=== PATIENT | female | born 1995 | race Caucasian/White ===

== ENCOUNTER → 2018-01-11 11:09 | Outpatient (REF) | payer BC, SELFPAY ==
[2018-01-15 11:21] LABS: Campylobacter PCR SEE COMMENTS; Salmonella PCR SEE COMMENTS; Shiga Toxin PCR SEE COMMENTS; Shigella/Enteroinvasive Ecoli SEE COMMENTS
== END ==
LOC: NCHCN 11:09
PROVIDERS: PCP Specialist/Technologist Athletic Trainer; Visit Provider Physician Assistant Medical
DX: R19.7 Diarrhea, unspecified (principal)
CPT/HCPCS: 87329; 87505

== ENCOUNTER → 2018-01-12 11:09 | Outpatient (REF) | payer BC, SELFPAY | LOC: NCHCN 11:09 | PROVIDERS: PCP Specialist/Technologist Athletic Trainer; Visit Provider Physician Assistant Medical | DX: R19.7 Diarrhea, unspecified (principal) | CPT/HCPCS: 83630; 87324 ==

== ENCOUNTER → 2018-02-04 16:41 | Outpatient (REF) | payer BC, SELFPAY ==
[2018-02-04 22:00] LABS: Bacteria Moderate HPF (Negative); Crystals Negative HPF (Negative); Epithelial Cells Moderate HPF (Negative); RBC 0-2 (0-2); WBC 0-2 HPF (0-5)
[2018-02-04 22:01] LABS: C & S Indicated? No/Sq. Contamination; Casts Negative LPF (Negative); Mucus Moderate (Negative)
[2018-02-06 14:27] LABS: Chlamydia Result Negative; GC Result Negative; Specimen Description VAGINAL
== END ==
LOC: NCHCN 16:41
PROVIDERS: PCP Specialist/Technologist Athletic Trainer; Visit Provider Specialist/Technologist Athletic Trainer
DX: N89.8 Other specified noninflammatory disorders of vagina (principal); R51 Headache; Z11.3 Encounter for screening for infections with a predominantly sexual mode of transmission
CPT/HCPCS: 87491; 87591; 81015; 87480; 87510; 87660

== ENCOUNTER 2018-04-01 00:25 | Outpatient (CLI) | payer BC, SELFPAY ==
--- NOTE | 2018-04-01 06:51 | DI.US_ITS ---
SYMPTOM/DIAGNOSIS: SPLENOMEGALY,R16.1 ABDOMEN ULTRASOUND: Comparison is made with 08/27/17. The spleen is now normal in size, measuring 10.6 by 10.2 by 8.7 cm. There is a question of mild heterogeneity. The liver is normal in size and echogenicity. The gallbladder is unremarkable, without evidence of stones or wall thickening. The tail of the pancreas was not visualized. The aorta and kidneys are unremarkable. IMPRESSION: The spleen is now normal in size. No new abnormalities are seen.
== END 2018-04-01 00:45 ==
PROVIDERS: PCP Specialist/Technologist Athletic Trainer; Visit Provider Physician Assistant Medical
DX: R16.1 Splenomegaly, not elsewhere classified (principal)
CPT/HCPCS: 76700

== ENCOUNTER 2018-04-29 16:15 | Outpatient (REF) | payer BC, SELFPAY ==
[2018-05-01 14:57] LABS: Chlamydia Result Negative; GC Result Negative; Specimen Description CERVIX
== END 2018-04-29 16:35 ==
LOC: LBN 16:15
PROVIDERS: PCP Specialist/Technologist Athletic Trainer; Visit Provider Obstetrics & Gynecology Gynecology
DX: Z11.3 Encounter for screening for infections with a predominantly sexual mode of transmission (principal)
CPT/HCPCS: 87491; 87591

== ENCOUNTER 2018-05-06 08:14 | Outpatient (CLI) | payer BC, SELFPAY ==
--- NOTE | 2018-05-06 15:09 | DI.US_ITS ---
SYMPTOM/DIAGNOSIS: RT SIDED PELVIC PAIN R10.2 PELVIC ULTRASOUND Comparison is made with 17 Apr 2016. Transabdominal and transvaginal exams were performed. The uterus measures 7.2 x 2.6 x 4.2 cm. An IUD is seen positioned within the endometrium. A 1.8 cm follicle is seen on the left ovary. The right ovary shows small follicles. There is no free fluid or hydronephrosis. IMPRESSION: Pelvic ultrasound is within normal limits. The IUD appears appropriately positioned.
== END 2018-05-06 08:34 ==
PROVIDERS: PCP Physician Assistant Medical; Visit Provider Obstetrics & Gynecology Gynecology
DX: R10.2 Pelvic and perineal pain (principal); Z30.431 Encounter for routine checking of intrauterine contraceptive device
CPT/HCPCS: 76830; 76856

== ENCOUNTER 2018-07-11 13:30 | Outpatient (REF) | payer BC, SELFPAY ==
--- NOTE | 2018-07-11 13:00 | PAPFT_PTH ---
PATIENT: Lee Colon LOC: [facility] U#:[id number] AGE/SX: 22/F ROOM: RE07/11/[address]: YANICK Ovalle : 1995 BED: DIS: 07/11/2018 SPEC #: [id number] RECD: 07/11/18 17:47 STATUS: NORMA RESha #: [id number] DARY: 07/11/18 13:[address]: Frances Coronado DEPT: [facility] Cytology RECD BY: Jessie Varela ENTERED: 07/11/18 17:47 SP TYPE: PAPFT SANTOS DR: Yimi Cannon Tissues: 1 - CX/ENDOCX FOR PAP SMEARS Procedures: PAP THIN PREP/[facility] Screening Comments: [id number]
[2018-07-12 14:59] LABS: Chlamydia Result Negative; GC Result Negative; Specimen Description CERVIX
== END 2018-07-11 13:50 ==
LOC: LBN 13:30
PROVIDERS: PCP Physician Assistant Medical; Visit Provider Nurse Practitioner Family
DX: Z11.3 Encounter for screening for infections with a predominantly sexual mode of transmission (principal); Z12.4 Encounter for screening for malignant neoplasm of cervix; Z11.51 Encounter for screening for human papillomavirus (HPV)
CPT/HCPCS: 87491; 87591; 88142

== ENCOUNTER 2018-09-05 15:00 | Outpatient (REF) | payer BC, SELFPAY ==
[2018-09-09 14:03] LABS: Chlamydia Result Negative; GC Result Negative; Specimen Description CERVIX
== END 2018-09-05 15:20 ==
LOC: LBN 15:00
PROVIDERS: PCP Physician Assistant Medical; Visit Provider Nurse Practitioner Family
DX: R35.0 Frequency of micturition (principal); Z11.3 Encounter for screening for infections with a predominantly sexual mode of transmission
CPT/HCPCS: 87491; 87591; 87086

== ENCOUNTER 2019-04-22 15:57 | Outpatient (REF) | payer BC, SELFPAY ==
[2019-04-24 14:15] LABS: Chlamydia Result Negative (Negative)
[2019-04-24 16:37] LABS: GC Result Negative (Negative)
== END 2019-04-22 16:17 ==
LOC: LBN 15:57
PROVIDERS: PCP Physician Assistant Medical; Visit Provider Nurse Practitioner Family
DX: Z11.3 Encounter for screening for infections with a predominantly sexual mode of transmission (principal)
CPT/HCPCS: 87491; 87591

== ENCOUNTER 2020-12-16 15:14 | Outpatient (CLI) | payer BC, SELFPAY ==
--- NOTE | 2020-12-16 12:45 | DI.RAD_ITS ---
Exam(s) XR FOOT RT COMPLETE EXAM: XR FOOT RT COMPLETE CLINICAL HISTORY: TOE PAIN RT M79.674. TECHNIQUE: 2D digital imaging was performed. COMPARISON: No exams were available for comparison FINDINGS: BONES: Nondisplaced fracture of the tuft of the distal phalanx of the 3rd toe. No additional fractur es.. No bony destructive lesion is seen. JOINTS: No dislocation present. SOFT TISSUE: Normal. IMPRESSION: Third toe tuft fracture. DATA REPOSITORY: RADIATION DOSE DELIVERED:
== END 2020-12-16 15:34 ==
PROVIDERS: PCP Physician Assistant Medical; Visit Provider Physician Assistant Medical
DX: S92.534A Nondisplaced fracture of distal phalanx of right lesser toe(s), initial encounter for closed fracture (principal); X58.XXXA Exposure to other specified factors, initial encounter
CPT/HCPCS: 73630

== ENCOUNTER 2021-03-21 01:43 | Outpatient (CLI) | payer BC, SELFPAY ==
[2021-03-21 07:30] LABS: Abs Immature Grans 0.01 10^3/uL (0.0-0.06); Absolute Basophil Count 0.02 10^3/uL (0.0-0.2); Absolute Eosinophil Count 0.05 10^3/uL (0.0-0.7); Absolute Lymphocyte Count 2.05 10^3/uL (1.2-3.4); Absolute Neutrophil Count 1.96 10^3/uL (1.2-6.7); Basophils % 0.4; Eosinophils % 1.1; HCT 41.6 % (36.0-46.0); HGB 13.3 g/dL (11.2-15.7); Immature Grans % 0.2; Lymphocytes % 45.7; MCH 28.6 pg (27.0-33.0); MCV 89.5 fL (80-95); MPV 10.1 fL (8.0-11.0); Monocytes % 8.9; Neutrophils % 43.7; Nucleated RBC 0 %; Platelet Count 191 10^3/uL (130-400); RBC 4.65 10^6/uL (3.93-5.22); RDW-SD 39.6 fL; WBC 4.49 10^3/uL (4.4-10.8)
[2021-03-21 10:52] LABS: ALT 24 U/L (14-59); AST 16 U/L (15-37); Albumin 4.5 g/dL (3.4-5.0); Alkaline Phosphatase 79 U/L (46-116); Anion Gap 8.7 mmol/L (3-11); BUN 24 mg/dL (7-18); Bilirubin, Total 0.4 mg/dL (0.2-1.0); CO2 29.3 mmol/L (21.0-32.0); CREATININE 0.9 mg/dL (0.55-1.02); Chloride 105 mmol/L (98-107); Ferritin 47 ng/mL (8-252); Folate 6.3 ng/mL (8.6-20.0); Glucose 89 mg/dL (74-106); Iron 55 ug/dL (50-170); Magnesium 1.9 mg/dL (1.8-2.4); Potassium 4.3 mmol/L (3.5-5.1); Sodium 143 mmol/L (136-145); TSH (W/Ref FT4) 1.95 uIU/mL (0.36-3.74); Total Iron Binding Capacity 315 ug/dL (250-450); Total Protein 7.5 g/dL (6.4-8.2); Transferrin Sat 17 % (15-50); Vitamin B12 665 pg/mL (193-986)
[2021-03-21 11:49] LABS: Calcium 9.1 mg/dL (8.5-10.1)
[2021-03-21 16:30] LABS: T3,Free 3.2 pg/mL (2.8-5.3)
[2021-03-21 17:02] LABS: Progesterone 0.5 ng/mL (See Table)
[2021-03-23 10:54] LABS: EBNA IgG Positive (Negative); EBV Interpretation (See Note); VCA IgG Positive (Negative); VCA IgM Positive (Negative)
[2021-03-24 13:02] LABS: Estradiol, Mass Spectrometry 42 pg/mL; Estrone 31 pg/mL
[2021-03-31 16:38] LABS: Testosterone, Free 0.65 ng/dL (0.06-1.08); Testosterone, Total 27 ng/dL (8-60)
== END 2021-03-21 01:44 | disposition home or self-care (01) ==
PROVIDERS: PCP Physician Assistant Medical; Visit Provider Naturopath
DX: N92.6 Irregular menstruation, unspecified (principal); R53.83 Other fatigue; G43.909 Migraine, unspecified, not intractable, without status migrainosus
CPT/HCPCS: 36415; 80053; 84402; 84403; 82607; 82670; 82679; 82728; 82746; 83540; 83550; 83735; 84144; 84443; 84481; 85025; 86664; 86665

== ENCOUNTER 2021-04-06 16:39 | Outpatient (REF) | payer BC, SELFPAY | END 2021-04-06 16:40 | disposition home or self-care (01) | LOC: LBN 16:39 | PROVIDERS: PCP Physician Assistant Medical; Visit Provider Obstetrics & Gynecology Gynecology | DX: N89.8 Other specified noninflammatory disorders of vagina (principal) | CPT/HCPCS: 87480; 87510; 87660 ==

== ENCOUNTER 2021-08-24 17:32 | Outpatient (REF) | payer BC, SELFPAY ==
[2021-08-25 13:46] LABS: Chlamydia Result Negative (Negative); GC Result Negative (Negative)
== END 2021-08-24 17:33 | disposition home or self-care (01) ==
LOC: LBN 17:32
PROVIDERS: PCP Physician Assistant Medical; Visit Provider Obstetrics & Gynecology Gynecology
DX: N89.8 Other specified noninflammatory disorders of vagina (principal); Z11.3 Encounter for screening for infections with a predominantly sexual mode of transmission
CPT/HCPCS: 87491; 87591

== ENCOUNTER 2021-11-01 18:42 | Outpatient (REF) | payer BC, SELFPAY ==
[2021-11-03 08:21] LABS: Chlamydia Result Negative (Negative); GC Result Negative (Negative)
== END 2021-11-01 18:43 | disposition home or self-care (01) ==
LOC: LBN 18:42
PROVIDERS: PCP Physician Assistant Medical; Visit Provider Obstetrics & Gynecology
DX: N76.0 Acute vaginitis (principal); B96.89 Other specified bacterial agents as the cause of diseases classified elsewhere
CPT/HCPCS: 87491; 87591; 87480; 87510; 87660

== ENCOUNTER 2021-11-24 17:21 | Outpatient (REF) | payer BC, SELFPAY | END 2021-11-24 17:22 | disposition home or self-care (01) | LOC: LBN 17:21 | PROVIDERS: PCP Physician Assistant Medical; Visit Provider Obstetrics & Gynecology Gynecology | DX: N76.0 Acute vaginitis (principal) | CPT/HCPCS: 87480; 87510; 87660 ==

== ENCOUNTER 2022-03-22 16:11 | Outpatient (REF) | payer BC, SELFPAY ==
[2022-03-22 14:48] LABS: Abs Immature Grans 0.01 10^3/uL (0.0-0.06); Absolute Basophil Count 0.01 10^3/uL (0.0-0.2); Absolute Eosinophil Count 0.03 10^3/uL (0.0-0.7); Absolute Monocyte Count 0.58 10^3/uL (0.1-0.8); Basophils % 0.1; Eosinophils % 0.4; HCT 38.4 % (36.0-46.0); HGB 12.5 g/dL (11.2-15.7); Immature Grans % 0.1; Lymphocytes % 22.1; MCH 27.9 pg (27.0-33.0); MCHC 32.6 % (32.0-36.0); MCV 86 fL (80-95); MPV 10.7 fL (8.0-11.0); Monocytes % 7.1; Neutrophils % 70.2; Platelet Count 195 10^3/uL (130-400); RBC 4.48 10^6/uL (3.93-5.22); RDW 12.1 % (11.7-14.6); RDW-SD 37.7 fL; WBC 8.13 10^3/uL (4.4-10.8)
[2022-03-22 15:09] LABS: ALT 22 U/L (14-59); AST 20 U/L (15-37); Albumin 4.6 g/dL (3.4-5.0); Alkaline Phosphatase 68 U/L (46-116); Anion Gap 6.2 mmol/L (3-11); BUN 17 mg/dL (7-18); Bilirubin, Total 0.3 mg/dL (0.2-1.0); CO2 28.8 mmol/L (21.0-32.0); CREATININE 0.9 mg/dL (0.55-1.02); Calcium 9.5 mg/dL (8.5-10.1); Chloride 103 mmol/L (98-107); Estimated GFR 90.98 (mL/min/1.73m2); Glucose 89 mg/dL (74-106); Potassium 4.1 mmol/L (3.5-5.1); Sodium 138 mmol/L (136-145); TSH (W/Ref FT4) 0.89 uIU/mL (0.36-3.74); Total Protein 8.3 g/dL (6.4-8.2)
== END 2022-03-22 16:12 | disposition home or self-care (01) ==
LOC: NCHCN 16:11
PROVIDERS: PCP Physician Assistant Medical; Visit Provider Physician Assistant Medical
DX: L65.9 Nonscarring hair loss, unspecified (principal)
CPT/HCPCS: 80053; 84443; 85025

== ENCOUNTER 2023-01-03 18:12 | Outpatient (CLI) | payer MEDICAID, SELFPAY ==
--- NOTE | 2023-01-03 16:23 | DI.RAD_ITS ---
Exam(s) XR SACROILIAC JOINTS EXAM: XR SACROILIAC JOINTS CLINICAL HISTORY: SACROCOCCYGEAL DISORDERS--M53.3. TECHNIQUE: 2D digital imaging was performed. COMPARISON: No exams were available for comparison FINDINGS: 3 views No evidence of sacroiliitis. No ankylosis of the SI joints. There is a sclerotic density in the left iliac bone measuring approximately 1.6 x 1.2 cm. This is pr obably a benign bone island. IMPRESSION: No significant radiograph findings in the sacroiliac joints. Bone island noted in the left iliac bone. DATA REPOSITORY: RADIATION DOSE DELIVERED:
--- NOTE | 2023-01-03 16:23 | DI.RAD_ITS ---
Exam(s) XR LUMBAR SPINE COMPLETE EXAM: XR LUMBAR SPINE COMPLETE CLINICAL HISTORY: LOW BACK PAIN--M54.50. TECHNIQUE: 2D digital imaging was performed. COMPARISON: CR CHEST 2 VIEWS PA,LAT from 03/11/2013 MR MRI PELVIS WO W from 02/10/2016 FINDINGS: Five views There is no evidence of fracture, listhesis, or pars defects. All the disc spaces exhibit normal hei ght. There is no scoliosis. Facets unremarkable. SI joints unremarkable. There is a sclerotic den sity in the left iliac bone noted. Probably represents a benign bone island IMPRESSION: No significant radiograph findings in the lumbosacral spinal column. Sclerotic bone density in noted in the left iliac bone measuring approximately 1.4 x 1.2 cm. This is most probably a benign bone island but comparison to any prior images would be helpful if they exist . Appropriate follow-up recommended. DATA REPOSITORY: RADIATION DOSE DELIVERED:
== END 2023-01-03 18:32 ==
PROVIDERS: PCP Physician Assistant Medical; Visit Provider Nurse Practitioner Family
DX: M54.50 Low back pain, unspecified (principal); M53.3 Sacrococcygeal disorders, not elsewhere classified; M89.8X8 Other specified disorders of bone, other site
CPT/HCPCS: 72110; 72202

== ENCOUNTER 2023-02-28 13:53 | Outpatient (REF) | payer MEDICAID, SELFPAY ==
[2023-02-28 18:32] LABS: C-Reactive Protein 0.11 mg/dL (0.0-0.3)
[2023-03-01 18:50] LABS: Rheumatoid Factor <8.6 IU/mL (<12.0)
[2023-03-02 15:15] LABS: ANA Interpretation Negative (Negative)
[2023-03-03 11:04] LABS: c-ANCA Negative (Negative); p-ANCA Negative (Negative)
[2023-03-05 08:21] LABS: HLA-B27 Result Negative
== END 2023-02-28 13:54 | disposition home or self-care (01) ==
LOC: NCHCN 13:53
PROVIDERS: PCP Physician Assistant Medical; Visit Provider Physician Assistant Medical
DX: M54.9 Dorsalgia, unspecified (principal)
CPT/HCPCS: 86812; 86038; 86140; 86255; 86431

== ENCOUNTER 2023-07-26 14:25 | Outpatient (REF) | payer MEDICAID, SELFPAY | END 2023-07-26 14:26 | disposition home or self-care (01) | LOC: LBN 14:25 | PROVIDERS: PCP Physician Assistant Medical; Visit Provider Physician Assistant Medical | DX: J02.9 Acute pharyngitis, unspecified (principal) | CPT/HCPCS: 87070 ==

== ENCOUNTER 2023-09-24 11:40 | Outpatient (REF) | payer MEDICAID, SELFPAY ==
--- NOTE | 2023-09-24 10:00 | PAPFT_PTH ---
PATIENT: Lee Colon LOC: [facility] U#:[id number] AGE/SX: 28/F ROOM: RE09/24/[address]: Arabella Raman DO : 1995 BED: DIS: 09/24/2023 SPEC #: [id number] RECD: 09/24/23 17:57 STATUS: NORMA REQ #: [id number] DARY: 09/24/23 10:[address]: Arabella Raman DEPT: [facility] Cytology RECD BY: Jessie Varela ENTERED: 09/24/23 17:57 SP TYPE: PAPFT OTHR DR: Yimi Cannon Tissues: 1 - CX/ENDOCX FOR PAP SMEARS Procedures: PAP THIN PREP/[facility] Screening HPV DNA PROBE Comments: [id number]
== END 2023-09-24 11:41 | disposition home or self-care (01) ==
LOC: LBN 11:40
PROVIDERS: PCP Physician Assistant Medical; Visit Provider Obstetrics & Gynecology
DX: Z01.419 Encounter for gynecological examination (general) (routine) without abnormal findings (principal)
CPT/HCPCS: 88142; 87624

== ENCOUNTER 2024-01-29 16:19 | Outpatient (REF) | payer MEDICAID, SELFPAY ==
[2024-01-29 17:20] LABS: Bilirubin Negative (Negative); Blood Negative (Negative); Clarity Clear (Clear); Glucose Negative (Negative); Ketones Negative (Negative); Leukocyte Esterase Trace (Negative); Nitrite Negative (Negative); Urobilinogen 0.2 mg/dL (Up to 0.2)
[2024-01-29 17:34] LABS: Bacteria Negative HPF (Negative); C & S Indicated? C&S Done As Ordered; Casts Negative LPF (Negative); Crystals Negative HPF (Negative); Epithelial Cells Rare HPF (Negative); Mucus Negative (Negative); RBC Negative HPF (0-2)
== END 2024-01-29 16:20 | disposition home or self-care (01) ==
LOC: LBN 16:19
PROVIDERS: PCP Physician Assistant Medical; Visit Provider Advanced Practice Midwife
DX: R35.0 Frequency of micturition (principal); N76.0 Acute vaginitis
CPT/HCPCS: 81003; 81015; 87086; 87480; 87510; 87660

== ENCOUNTER 2024-02-12 14:08 | Outpatient (CLI) | payer MEDICAID, SELFPAY ==
--- NOTE | 2024-02-12 | DI.RAD_ITS ---
Exam(s) XR HAND RT COMPLETE EXAM: XR HAND RT COMPLETE CLINICAL HISTORY: Pain in rt hand, M79.641. TECHNIQUE: 2D digital imaging was performed. COMPARISON: No exams were available for comparison FINDINGS: 3 views No evidence of fracture or subluxations. No osseous lesions nor erosions. No abnormal soft tissue d ensities. No radiopaque foreign bodies. IMPRESSION: No significant radiographic findings in the right hand. DATA REPOSITORY: RADIATION DOSE DELIVERED:
== END 2024-02-12 14:28 ==
LOC: DI 14:08
PROVIDERS: PCP Physician Assistant Medical; Visit Provider Nurse Practitioner Family
DX: M79.641 Pain in right hand (principal)
CPT/HCPCS: 73130

== ENCOUNTER 2024-02-12 19:01 | Outpatient (REF) | payer MEDICAID, SELFPAY ==
[2024-02-12 21:40] LABS: Abs Immature Grans 0.03 10^3/uL (0.0-0.06); Absolute Basophil Count 0.02 10^3/uL (0.0-0.2); Absolute Eosinophil Count 0.03 10^3/uL (0.0-0.7); Absolute Monocyte Count 0.49 10^3/uL (0.1-0.8); Absolute Neutrophil Count 4.56 10^3/uL (1.2-6.7); Basophils % 0.3 %; Eosinophils % 0.4 %; HCT 38.8 % (36.0-46.0); HGB 12.8 g/dL (11.2-15.7); Immature Grans % 0.4 %; Lymphocytes % 31.9 %; MCH 28.1 pg (27.0-33.0); MCV 85 fL (80-95); MPV 11.1 fL (8.0-11.0); Monocytes % 6.5 %; Neutrophils % 60.5 %; Platelet Count 221 10^3/uL (130-400); RBC 4.55 10^6/uL (3.93-5.22); RDW 12.8 % (11.7-14.6); RDW-SD 39.4 fL; WBC 7.53 10^3/uL (4.4-10.8)
[2024-02-12 21:57] LABS: ALT 23 U/L (14-59); AST 17 U/L (15-37); Albumin 4.5 g/dL (3.4-5.0); Alkaline Phosphatase 58 U/L (46-116); Anion Gap 4.2 mmol/L (3-11); BUN 13 mg/dL (7-18); Bilirubin, Total 0.27 mg/dL (0.2-1.0); C-Reactive Protein < 0.50 mg/dL (<or=0.5); CO2 30.8 mmol/L (21.0-32.0); CREATININE 0.9 mg/dL (0.55-1.02); Calcium 9.9 mg/dL (8.5-10.1); Chloride 105 mmol/L (98-107); Estimated GFR 89.86 (mL/min/1.73m2); Glucose 89 mg/dL (74-106); Potassium 4.3 mmol/L (3.5-5.1); Sodium 140 mmol/L (136-145); Total Protein 7.6 g/dL (6.4-8.2); Uric Acid 4.2 mg/dL (2.6-6.0)
[2024-02-14 11:21] LABS: Lyme Ab w Rflx to Lyme Confirm Negative (Negative)
== END 2024-02-12 19:02 | disposition home or self-care (01) ==
LOC: LBN 19:01
PROVIDERS: PCP Physician Assistant Medical; Visit Provider Nurse Practitioner Family
DX: M79.641 Pain in right hand (principal)
CPT/HCPCS: 80053; 84550; 85025; 86140; 86618

== ENCOUNTER 2024-04-22 04:34 | Outpatient (CLI) | payer MEDICAID, SELFPAY ==
[2024-04-22 16:16] LABS: Abs Immature Grans 0.01 10^3/uL (0.0-0.06); Absolute Basophil Count 0.01 10^3/uL (0.0-0.2); Absolute Eosinophil Count 0.03 10^3/uL (0.0-0.7); Absolute Lymphocyte Count 2.11 10^3/uL (1.2-3.4); Absolute Neutrophil Count 4.84 10^3/uL (1.2-6.7); Basophils % 0.1 %; Eosinophils % 0.4 %; HCT 35.5 % (36.0-46.0); HGB 11.7 g/dL (11.2-15.7); Immature Grans % 0.1 %; Lymphocytes % 28.1 %; MCH 27.9 pg (27.0-33.0); MCV 85 fL (80-95); MPV 10.2 fL (8.0-11.0); Monocytes % 6.7 %; Neutrophils % 64.6 %; Platelet Count 184 10^3/uL (130-400); RDW 12.5 % (11.7-14.6)
[2024-04-22 16:47] LABS: ESR < 1 mm/hr (0-20)
[2024-04-22 17:22] LABS: ALT 19 U/L (14-59); AST 18 U/L (15-37); Albumin 4.2 g/dL (3.4-5.0); Alkaline Phosphatase 70 U/L (46-116); Anion Gap 10.4 mmol/L (3-11); BUN 17 mg/dL (7-18); Bilirubin, Total 0.22 mg/dL (0.2-1.0); C-Reactive Protein < 0.50 mg/dL (<or=0.5); CO2 25.6 mmol/L (21.0-32.0); CREATININE 0.9 mg/dL (0.55-1.02); Calcium 9.4 mg/dL (8.5-10.1); Chloride 106 mmol/L (98-107); Estimated GFR 89.86 (mL/min/1.73m2); Glucose 94 mg/dL (74-106); Potassium 3.8 mmol/L (3.5-5.1); Sodium 142 mmol/L (136-145); Total Protein 7.3 g/dL (6.4-8.2)
[2024-04-23 17:41] LABS: Rheumatoid Factor 9.2 IU/mL (<12.0)
[2024-04-24 09:36] LABS: Cyclic Citrullinated Peptide <2.5 U/mL (<5.0)
[2024-04-24 10:26] LABS: Lyme Ab w Rflx to Lyme Confirm Negative (Negative)
[2024-04-24 14:15] LABS: ANA Interpretation Negative (Negative)
== END 2024-04-22 04:35 | disposition home or self-care (01) ==
LOC: LBO 04:34
PROVIDERS: PCP Physician Assistant Medical; Visit Provider Orthopaedic Surgery
DX: M25.841 Other specified joint disorders, right hand (principal)
CPT/HCPCS: 36415; 80053; 85652; 86200; 85025; 86038; 86140; 86431; 86618

== ENCOUNTER 2025-04-09 17:43 | Outpatient (REF) | payer MEDICAID, SELFPAY ==
[2025-04-09 19:34] LABS: HCT 36.4 % (36.0-46.0); HGB 11.6 g/dL (11.2-15.7); MCH 27.4 pg (27.0-33.0); MCHC 31.9 % (32.0-36.0); MCV 86 fL (80-95); MPV 10.6 fL (8.0-11.0); Platelet Count 211 10^3/uL (130-400); RBC 4.24 10^6/uL (3.93-5.22); RDW 13.2 % (11.7-14.6); RDW-SD 41.1 fL; WBC 6.56 10^3/uL (4.4-10.8)
[2025-04-09 19:46] LABS: Iron 51 ug/dL (50-170); Total Iron Binding Capacity 322 ug/dL (250-450); Transferrin Sat 16 % (15-50)
[2025-04-09 20:16] LABS: Ferritin 37 ng/mL (8-252); Folate 7.2 ng/mL (8.6-20.0); TSH 1.07 uIU/mL (0.36-3.74); Vitamin B12 737 pg/mL (193-986); Vitamin D 25 Total 32 ng/mL (30-100)
[2025-04-10 21:14] LABS: FSH 4.1 mIU/mL (See Note); LH 4.0 mIU/mL (See Note)
== END 2025-04-09 17:44 | disposition home or self-care (01) ==
LOC: NCHCN 17:43
PROVIDERS: PCP Physician Assistant Medical; Visit Provider Family Medicine
DX: L65.9 Nonscarring hair loss, unspecified (principal); N92.6 Irregular menstruation, unspecified; E53.8 Deficiency of other specified B group vitamins; R53.83 Other fatigue; D64.9 Anemia, unspecified
CPT/HCPCS: 82306; 85027; 82607; 82670; 82728; 82746; 83001; 83002; 83540; 83550; 84144; 84439; 84443